=== PATIENT | male | born 1970 | race Caucasian/White ===

== ENCOUNTER 2017-07-20 06:04 | Observation (INO) ==
[2017-07-20] MEDS ORDERED: Aspirin 81 MG TAB.CHEW PO ONE (06:12)
[2017-07-20] MEDS ORDERED: Nitroglycerin 1 INCH/GM PACKET TP ONE (06:12)
--- NOTE | 2017-07-20 06:15 | Emergency Department Note ---
START Narrative - START START: I examined this patient and my medical decision-making was reviewed with the Resident Physician. I agree with the documented findings, disposition and treatment plan as described except to the extent set forth below. Nonspecific chest pain. Plan to obtain cardiac biomarkers, chest x-ray, EKG is nonspecific at this time. We will sign this patient out to Dr. Fermin and his resident at 7 AM for disposition after results of laboratory analyses and imaging are available and after risk stratification.
[2017-07-20 06:24] LABS: Basophils # 0.1 K/mcL (0.0-0.2); Basophils % 0.7 %; Eosinophils # 0.3 K/mcL (0.0-0.6); Eosinophils % 3.7 %; Hematocrit 48.7 % (37.5-50.1); Hemoglobin 16.2 g/dL (12.9-16.9); Immature Granulocytes % 0.9 % (0-4); Lymphocytes # 2.6 K/mcL (0.6-4.6); Lymphocytes % 38.2 %; Mean Corpuscular HGB Conc 33.3 g/dL (31.6-35.5); Mean Corpuscular Hemoglobin 28.2 pg (28.0-33.3); Mean Corpuscular Volume 84.8 fL (83.0-100.0); Mean Platelet Volume 9.6 fL (9.4-12.4); Monocytes # 0.7 K/mcL (0.0-1.3); Monocytes % 9.9 %; Neutrophils # 3.2 K/mcL (1.6-8.9); Platelet Count 243 K/mcL (140-400); Red Blood Count 5.74 M/mcL (4.19-5.50); Red Cell Distribution Width 13.1 % (11.5-14.5); Segmented Neutrophils % 46.6 %
--- NOTE | 2017-07-20 06:41 | Emergency Department Note ---
Disposition Clinical Impression: Chest pain Qualifiers: Chest pain type: unspecified Qualified Code(s): R07.9 - Chest pain, unspecified Disposition: Still a Patient Condition: Good Referrals: Alison Galdamez CNP [Primary Care Provider] - Forms: ED Satisfaction Letter Chest Pain HPI - General Chief Complaint: ED Chest Pain Stated Complaint: cp Time Seen by Provider: 07/20/17 06:12 Source: patient Limitations: no limitations Vital Signs Reviewed: Yes Nursing Notes Reviewed: Yes - History of Present Illness HPI Narrative: Patient presents today for evaluation of chest pain. Chest pain started last night. Intermittent in nature. Describes chest pain in the left chest that goes to the right as well as radiation to shoulders and neck. Patient states that he has had a fluttering feeling. The symptoms been intermittent in nature for the last several months. Patient has not had any nausea or associated diaphoresis. He states that he has had some shortness of breath with some walks that he is taking recently but these had not been associated with chest pain. Patient has strong family history of chest pain including father and mother both had heart disease in their early 40s. The patient also has hypertension, hypercholesterolemia, obesity, diabetes. Patient has had cardiac workup in the past with a cardiac catheter that has been reported 7-10 years ago. Patient states that there was some disease but no lesion that needed to be stented. Patient will undergo further cardiac evaluation. Severity scale (1-10): 2 - Related Data Allergies Allergy/AdvReac Type Severity Reaction Status Date / Time No Known Allergies Allergy Verified 07/20/17 06:10 Review of Systems: CONSTITUTIONAL: No weight loss, fever, chills, weakness or fatigue. HEENT: Eyes: No visual changes. Ears, Nose, Throat: No hearing loss, difficulty talking or unable to swallow. SKIN: No rash or itching. CARDIOVASCULAR: Chest pain. RESPIRATORY: Shortness of breath GASTROINTESTINAL: No anorexia, nausea, vomiting or diarrhea. No abdominal pain or blood. GENITOURINARY: No burning on urination or hematuria. NEUROLOGICAL: No headache, dizziness, syncope, paralysis, ataxia, numbness or tingling in the extremities. No change in bowel or bladder control. MUSCULOSKELETAL: No muscle pain, back pain, joint pain or stiffness. Chest Pain PMH - Past Medical History Medical history: Reports: diabetes, hyperlipidemia, hypertension, migraine Psychiatric history: Reports: no psych history - Social History Smoking Status: Never smoker Alcohol use: Reports: occasionally Drug use: Reports: none Physical Exam General: Well appearing, nontoxic, no acute distress Head: Normocephalic Atraumatic Eyes: PERRL, EOMI ENT: Airway patent, no stridor Neck: supple, no meningismus Chest: Lungs clear to auscultation bilateral Cardiac: Regular rate and rhythm, no murmurs, rubs or gallops Abdomen: soft, nontender, nondistended; no guarding, rebound, or tenderness to percussion Musculoskeletal: Calves symmetric, nontender, no palpable cord Skin: No rash, normal skin tone Neuro: Alert and Oriented to person, place, and time; No focal deficit, CN 2-12 symmetric and intact - General Limitations: no limitations General appearance: alert, in no apparent distress Course - Reevaluation(s) Reevaluation #1: Patient signed out to Dr. Sahni Vital Signs Temperature 97.9 F 07/20/17 06:10 Pulse Rate 86 07/20/17 06:10 Respiratory Rate 20 07/20/17 06:10 Blood Pressure 181/106 07/20/17 06:10 O2 Sat by Pulse Oximetry 99 07/20/17 06:10 Temperature 97.9 F 07/20/17 06:10 Pulse Rate 79 07/20/17 07:01 Respiratory Rate 20 07/20/17 07:01 Blood Pressure 151/98 07/20/17 07:01 O2 Sat by Pulse Oximetry 95 07/20/17 07:01 Oxygen Delivery Oxygen Delivery Room Air Chest Pain - Medical Records Medical records reviewed: Yes I reviewed the patient's medical records. - Lab Data Lab results reviewed: Yes I reviewed the patient's lab results. Result diagrams: 07/20/17 06:16 07/20/17 06:16 Lab Results 07/20/17 07/20/17 Range/Units 06:16 06:16 WBC 6.8 (4.3-11.1) K/mcL RBC 5.74 H (4.19-5.50) M/mcL Hgb 16.2 (12.9-16.9) g/dL Hct 48.7 (37.5-50.1) % MCV 84.8 (83.0-100.0) fL MCH 28.2 (28.0-33.3) pg MCHC 33.3 (31.6-35.5) g/dL RDW 13.1 (11.5-14.5) % Plt Count 243 (140-400) K/mcL MPV 9.6 (9.4-12.4) fL Immature Gran % 0.9 (0-4) % Seg Neutrophils % 46.6 % Lymphocytes % 38.2 % Monocytes % 9.9 % Eosinophils % 3.7 % Basophils % 0.7 % Neutrophils # 3.2 (1.6-8.9) K/mcL Lymphocytes # 2.6 (0.6-4.6) K/mcL Monocytes # 0.7 (0.0-1.3) K/mcL Eosinophils # 0.3 (0.0-0.6) K/mcL Basophils # 0.1 (0.0-0.2) K/mcL Sodium 138 (136-145) mEq/L Potassium 3.2 L (3.5-5.1) mEq/L Chloride 99 (98-107) mEq/L Carbon Dioxide 31 H (23-29) mEq/L BUN 16 (6-20) mg/dL Creatinine 1.10 (0.70-1.30) mg/dL Est GFR ( Amer) > 60 (> 60) Est GFR (Non-Af Amer) > 60 (> 60) BUN/Creatinine Ratio 15 (6-26) Glucose 187 H (70-105) mg/dL Calculated Osmolality 292 (280-300) Calcium 9.7 (8.6-10.3) mg/dL Troponin I < 0.03 (< 0.04) ng/mL - Radiology Data Radiology results reviewed: Yes I reviewed the patient's radiology results. - EKG Data EKG attestation: Yes I reviewed and interpreted this EKG. EKG results narrative: EKG shows sinus rhythm with ventricular rate of 80. [place] interval 201. QRS 90. QTC 417. The significant ST elevations or depressions.no significant T-wave changes. No skin changes from previous EKG of 07/28/2014. Heart Score - Score History: Moderately Suspicious EKG: Normal Age: 45-65 Risk Factors: Equal/Greater than 3 risk factor or history of atherosclerotic disease Troponin: Less than normal limit HEART Score Total: 4
[2017-07-20 06:45] LABS: BUN/Creatinine Ratio 15 (6-26); Blood Urea Nitrogen 16 mg/dL (6-20); Calcium 9.7 mg/dL (8.6-10.3); Carbon Dioxide 31 mEq/L (23-29); Chloride 99 mEq/L (98-107); Glucose 187 mg/dL (70-105); Osmolality,Calculated 292 (280-300); Potassium 3.2 mEq/L (3.5-5.1); Sodium 138 mEq/L (136-145); eGFR For African Americans > 60 (> 60); eGFR For Non-African Americans > 60 (> 60)
[2017-07-20 06:46] LABS: Troponin I < 0.03 ng/mL (< 0.04)
--- NOTE | 2017-07-20 07:09 | Emergency Department Note ---
Disposition Clinical Impression: Chest pain Qualifiers: Chest pain type: unspecified Qualified Code(s): R07.9 - Chest pain, unspecified Disposition: Admitted As Inpatient Condition: Good Referrals: Alison Galdamez CNP [Primary Care Provider] - Forms: ED Satisfaction Letter Time of Disposition: 07:19 Chest Pain HPI - General Chief Complaint: ED Chest Pain Stated Complaint: cp Time Seen by Provider: 07/20/17 06:12 Source: patient Limitations: no limitations - History of Present Illness Severity scale (1-10): 2 - Related Data Allergies Allergy/AdvReac Type Severity Reaction Status Date / Time No Known Allergies Allergy Verified 07/20/17 06:10 All systems ED: reviewed and negative except as stated. Constitutional: Denies: fever Cardiovascular: Reports: chest pain. Denies: palpitations Respiratory: Reports: dyspnea. Denies: cough, wheezes Gastrointestinal: Denies: abdominal pain, nausea, vomiting, diarrhea Genitourinary: Denies: urgency, dysuria, frequency, hematuria, discharge Integumentary: Denies: rash Neurological: Denies: headache, weakness, numbness, paresthesias Chest Pain PMH - Past Medical History Medical history: Reports: diabetes, hyperlipidemia, hypertension, migraine Psychiatric history: Reports: no psych history - Social History Smoking Status: Never smoker Alcohol use: Reports: occasionally Drug use: Reports: none Physical Exam - General Limitations: no limitations General appearance: alert, in no apparent distress - Head Head exam: atraumatic, normocephalic, normal inspection - Eye Eye exam: Present: normal appearance, PERRL, EOMI - ENT ENT exam: normal exam, normal oropharynx, mucous membranes moist - Neck Neck exam: Present: normal inspection, full ROM, trachea midline - Chest Chest inspection: Present: normal inspection, symmetric chest wall rise, tenderness (mild somewhat reproducible renderness on left chest). Absent: rash - Respiratory Respiratory exam: Present: normal lung sounds bilaterally - Cardiovascular Cardiovascular exam: Present: regular rate, normal rhythm, normal heart sounds - Abdominal Exam Abdominal exam: Present: soft, Non-Tender. Absent: tenderness, distention, guarding, rebound, rigidity - Neurological Exam Neurological exam: Present: alert, oriented X3 - Psychiatric Psychiatric exam: Present: normal affect, normal mood - Skin Skin exam: Present: warm, dry, intact, normal color Course Course Narrative: Patient is a signout from Dr. Wagner and Dr. Snyder, please see their notes for any additional details. In summary, patient is a 46-year-old male with past medical history of hypertension, diabetes, high cholesterol. He also has a history of early PA in age 40s and his mother, father, grandfather. He presents today with chest pain that has been intermittent for the past 6 months. He describes the pain as a dull ache/pressure that starts in his left chest. It radiates to his left arm and is associated with some mild left upper extremity tingling. He states that yesterday, pain started around 5 PM while at rest, gradual in onset, described as a dull ache/pressure with radiation to his left upper extremity. He also had associated sweating. Denies any nausea, vomiting, fevers, diarrhea, abdominal pain, any current numbness continuing, weakness. No pleuritic component of the pain. No other leg swelling, calf pain , recent surgeries, long car rides, history of DVT or PE. He states that it started as a 5 out of 10 and continued until this morning. He was given aspirin and nitroglycerin by previous team. He states that his pain is now 2 out of 10. Chest pain is somewhat reproducible on exam but patient states it is deeper than what I'm able to palpate. Hx of reportedly negative stress test and heart cath in the past that were performed here several years ago, upon search I'm not able to find these records on our computer system. He does report that he has poor follow-up, we will likely not follow-up with cardiology for stress testing if he is discharged today. His heart score is 4 due to risk factors. EKG shows normal sinus rhythm with no acute ST changes. No new negative. Chest x-ray negative for any acute cardiopulmonary process. Due to risk factors, continued chest discomfort, for follow-up, will admit the patient for further ACS workup including trending troponins and recommended stress test. Vital Signs Temperature 97.9 F 07/20/17 06:10 Pulse Rate 86 07/20/17 06:10 Respiratory Rate 20 07/20/17 06:10 Blood Pressure 181/106 07/20/17 06:10 O2 Sat by Pulse Oximetry 99 07/20/17 06:10 Temperature 97.9 F 07/20/17 06:10 Pulse Rate 79 07/20/17 07:01 Respiratory Rate 20 07/20/17 07:01 Blood Pressure 151/98 07/20/17 07:01 O2 Sat by Pulse Oximetry 95 07/20/17 07:01 Oxygen Delivery Oxygen Delivery Room Air Chest Pain - MDM Narrative Medical decision making narrative: Patient is a signout from Dr. Wagner and Dr. Snyder, please see their notes for any additional details. In summary, patient is a 46-year-old male with past medical history of hypertension, diabetes, high cholesterol. He also has a history of early PA in age 40s and his mother, father, grandfather. He presents today with chest pain that has been intermittent for the past 6 months. He describes the pain as a dull ache/pressure that starts in his left chest. It radiates to his left arm and is associated with some mild left upper extremity tingling. He states that yesterday, pain started around 5 PM while at rest, gradual in onset, described as a dull ache/pressure with radiation to his left upper extremity. He also had associated sweating. Denies any nausea, vomiting, fevers, diarrhea, abdominal pain, any current numbness continuing, weakness. No pleuritic component of the pain. No other leg swelling, calf pain , recent surgeries, long car rides, history of DVT or PE. He states that it started as a 5 out of 10 and continued until this morning. He was given aspirin and nitroglycerin by previous team. He states that his pain is now 2 out of 10. Chest pain is somewhat reproducible on exam but patient states it is deeper than what I'm able to palpate. Hx of reportedly negative stress test and heart cath in the past that were performed here several years ago, upon search I'm not able to find these records on our computer system. He does report that he has poor follow-up, we will likely not follow-up with cardiology for stress testing if he is discharged today. His heart score is 4 due to risk factors. EKG shows normal sinus rhythm with no acute ST changes. No new negative. Chest x-ray negative for any acute cardiopulmonary process. Due to risk factors, continued chest discomfort, for follow-up, will admit the patient for further ACS workup including trending troponins and recommended stress test. - Medical Records Medical records reviewed: Yes I reviewed the patient's medical records. - Lab Data Lab results reviewed: Yes I reviewed the patient's lab results. Result diagrams: 07/20/17 06:16 07/20/17 06:16 Lab Results 07/20/17 07/20/17 Range/Units 06:16 06:16 WBC 6.8 (4.3-11.1) K/mcL RBC 5.74 H (4.19-5.50) M/mcL Hgb 16.2 (12.9-16.9) g/dL Hct 48.7 (37.5-50.1) % MCV 84.8 (83.0-100.0) fL MCH 28.2 (28.0-33.3) pg MCHC 33.3 (31.6-35.5) g/dL RDW 13.1 (11.5-14.5) % Plt Count 243 (140-400) K/mcL MPV 9.6 (9.4-12.4) fL Immature Gran % 0.9 (0-4) % Seg Neutrophils % 46.6 % Lymphocytes % 38.2 % Monocytes % 9.9 % Eosinophils % 3.7 % Basophils % 0.7 % Neutrophils # 3.2 (1.6-8.9) K/mcL Lymphocytes # 2.6 (0.6-4.6) K/mcL Monocytes # 0.7 (0.0-1.3) K/mcL Eosinophils # 0.3 (0.0-0.6) K/mcL Basophils # 0.1 (0.0-0.2) K/mcL Sodium 138 (136-145) mEq/L Potassium 3.2 L (3.5-5.1) mEq/L Chloride 99 (98-107) mEq/L Carbon Dioxide 31 H (23-29) mEq/L BUN 16 (6-20) mg/dL Creatinine 1.10 (0.70-1.30) mg/dL Est GFR ( Amer) > 60 (> 60) Est GFR (Non-Af Amer) > 60 (> 60) BUN/Creatinine Ratio 15 (6-26) Glucose 187 H (70-105) mg/dL Calculated Osmolality 292 (280-300) Calcium 9.7 (8.6-10.3) mg/dL Troponin I < 0.03 (< 0.04) ng/mL - Radiology Data Radiology results reviewed: Yes I reviewed the patient's radiology results. Chest X-Ray 07/20/17 06:12 IMPRESSION: No acute cardiopulmonary abnormality. D/ / Ravi Mathis MD / Ravi Mathis MD Interpreting Provider: Ravi Mathis MD - EKG Data EKG attestation: Yes I reviewed and interpreted this EKG. EKG results narrative: 07/20/17 at 06:08. NSR. Rate 80. [place] 201, QRS 98, QTC 417. Normal axis. No acute ST evelation or depression. Heart Score - Score History: Moderately Suspicious EKG: Normal Age: 45-65 Risk Factors: Equal/Greater than 3 risk factor or history of atherosclerotic disease Troponin: Less than normal limit HEART Score Total: 4 S.B.A.R. - S.Deiudonne.A.Guy Situation: Demographics, MOA Background: Presenting Complaint, Relevant PMH, Meds, & Allergies Assessment: Vital Signs, Course and respsone to treatment, Exam Concerns, Patient/Family Expectation, Pertinant Lab Results Recommendation: Barrier(s) to disposition, Recommendation based on pending studies, treatments, or consults S.B.A.RRose Report Given to: Dr. Sanaz Frazier Repor Time: 07:20
--- NOTE | 2017-07-20 08:58 | Internal Med History&Physical ---
Date of Encounter: 07/20/17 Time of Encounter: 08:00 Internal Medicine - H&P: HPI Chief complaint: chest pain Admitted From: Home History of present illness: Patient is 46-year-old male with past medical history significant for hypertension, diabetes and TOMMY who presents to the ER on 07/20/17 due to chest pain. Patient reports of 6 months of intermittent left-sided chest pain which he describes as dull to sharp lasting for hours with no provoking or relieving factors. Patient denies any radiation of this pain and denies any associated symptoms of shortness of breath, diaphoresis or nausea/vomiting. Patient was concerned due to strong family history of LA and decided to come to the ER for evaluation. In the ER, EKG showed no ST or T-wave changes and first set of cardiac biomarkers are negative. Patient will be admitted to medical surgical floor for ACS rule out. Past Med Surg Social Fam HX - Past Medical History Medical history: diabetes, hyperlipidemia, hypertension, migraine, other Psychiatric history: no psych history - Social History Smoking Status: Never smoker Alcohol use: occasionally Drug use: none - Family History Mother Living Status: Still Living Hx Family Cardiac Disorders: Yes (open heart when in her 40's) Internal Medicine - H&P: Meds Aspirin [Lo-Dose Aspirin EC] 81 mg PO DAILY 07/20/17 [History] Atenolol/Chlorthalidone [Tenoretic 50 Tablet] 1 tab PO DAILY 07/20/17 [History] Ezetimibe/Simvastatin [Vytorin 10-40 mg Tablet] 1 tab PO DAILY 07/20/17 [History ] Fenofibrate Nanocrystallized [Tricor] 145 mg PO DAILY 07/20/17 [History] Metformin HCl [Glucophage] 1,000 mg PO BID 07/20/17 [History] [place]-3/Dha/Epa/Fish Oil [Fish Oil 1,000 mg Softgel] 1 cap PO DAILY 07/20/17 [ History] 3 Allergy/AdvReac Type Severity Reaction Status Date / Time No Known Allergies Allergy Verified 07/20/17 06:10 All Systems PM: A 10-system review of systems was performed and is negative for pertinent findings except as documented above in the HPI. - Constitutional Vitals: Temp Pulse Resp BP Pulse Ox 98.2 F 63 16 134/80 95 07/20/17 08:44 07/20/17 08:44 07/20/17 08:44 07/20/17 08:44 07/20/17 08:44 General appearance: Present: A&O X 3, no acute distress - Eye Eye exam: Present: normal appearance - ENT ENT exam: Present: mucous membranes moist - Respiratory Respiratory exam: Present: CTAB. Absent: respiratory distress, rhonchi, wheezes , tachypnea - Cardiovascular Cardiovascular exam: Present: RRR, +S1, +S2. Absent: diastolic murmur, gallop, rubs, systolic murmur - GI/Abdominal GI/Abdominal exam: Present: normal bowel sounds, soft, no peritoneal signs. Absent: distended, tenderness - Extremities Exam Extremities exam: Absent: pedal edema - Neurological Exam Neurological exam: Present: oriented X3 - Psychiatric Psychiatric exam: Present: normal mood - Skin Skin exam: Present: normal color Internal Med - H&P Results - Labs CBC & Chem 7: 07/20/17 06:16 07/20/17 06:16 - Assessment and plan (1) Chest pain Current Visit: Yes Status: Acute Assessment and plan: In the ER, EKG showed no ST or T-wave changes and first set of cardiac biomarkers are negative. Will continue to trend serial cardiac biomarkers and monitor on telemetry. Will order nuclear medicine stress tests and await results before considering cardiology consult. Qualifiers: Chest pain type: unspecified Qualified Code(s): R07.9 - Chest pain, unspecified (2) HTN (hypertension), benign Current Visit: Yes Status: Acute Assessment and plan: Blood pressure controlled; will hold beta ramiro due to pending nuclear medicine stress test (3) Diabetes Current Visit: Yes Status: Acute Assessment and plan: Blood glucose controlled; will hold metformin and cover with sliding scale insulin Qualifiers: Qualified Code(s): E11.9 - Type 2 diabetes mellitus without complications (4) HLD (hyperlipidemia) Current Visit: Yes Status: Acute Assessment and plan: Will continue home cholesterol medications Qualifiers: Hyperlipidemia type: unspecified Qualified Code(s): E78.5 - Hyperlipidemia , unspecified (5) TOMMY (obstructive sleep apnea) Current Visit: Yes Status: Acute Assessment and plan: CPAP daily at bedtime (6) DVT prophylaxis Current Visit: Yes Status: Acute Assessment and plan: Heparin subcutaneous - Time Spent With Patient Total time spent is greater than 50% in coordination of care (as documented) at patient's floor/unit and/or counseling patient:
[2017-07-20] MEDS ORDERED: Naloxone 0.4 MG/ML INJ IVP PRN (09:19)
[2017-07-20] MEDS ORDERED: Ketorolac 30 MG/ML VIAL IVP PRN (09:19)
[2017-07-20] MEDS ORDERED: Dextrose Gel 15 GM/37.5 ML TUBE PO PRN ×2 (09:24)
[2017-07-20] MEDS ORDERED: D5% in Water 1,000 ML IVC PRN (09:24)
[2017-07-20] MEDS ORDERED: *HR* Dextrose 50 % in Water (Syg) 50 ML SYRINGE IVP PRN (09:24)
[2017-07-20] MEDS: Insulin LISPRO 300 UNITS/3 ML VIAL SQ SCH ×2 (12:02→17:38)
[2017-07-20] MEDS ORDERED: Nitroglycerin 0.4 MG TAB.SUBL SL PRN (20:10)
[2017-07-21 01:16] LABS: Basophils % 0.5 %; Eosinophils # 0.2 K/mcL (0.0-0.6); Eosinophils % 3.7 %; Hematocrit 42.5 % (37.5-50.1); Hemoglobin 14.8 g/dL (12.9-16.9); Lymphocytes # 2.7 K/mcL (0.6-4.6); Lymphocytes % 43.8 %; Mean Corpuscular HGB Conc 34.8 g/dL (31.6-35.5); Mean Corpuscular Hemoglobin 29.4 pg (28.0-33.3); Mean Corpuscular Volume 84.5 fL (83.0-100.0); Mean Platelet Volume 9.8 fL (9.4-12.4); Monocytes # 0.6 K/mcL (0.0-1.3); Monocytes % 9.6 %; Neutrophils # 2.6 K/mcL (1.6-8.9); Platelet Count 209 K/mcL (140-400); Red Blood Count 5.03 M/mcL (4.19-5.50); Segmented Neutrophils % 41.4 %
[2017-07-21 01:37] LABS: BUN/Creatinine Ratio 16 (6-26); Blood Urea Nitrogen 18 mg/dL (6-20); Calcium 9.4 mg/dL (8.6-10.3); Carbon Dioxide 31 mEq/L (23-29); Chloride 101 mEq/L (98-107); Glucose 130 mg/dL (70-105); Osmolality,Calculated 292 (280-300); Potassium 3.3 mEq/L (3.5-5.1); Sodium 139 mEq/L (136-145); eGFR For African Americans > 60 (> 60); eGFR For Non-African Americans > 60 (> 60)
--- NOTE | 2017-07-21 05:32 | Electrocardiograph Report ---
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
[2017-07-21] MEDS ORDERED: Regadenoson 0.4 MG/5 ML SYRINGE IVP ONE (05:42)
[2017-07-21] MEDS: Insulin LISPRO 300 UNITS/3 ML VIAL SQ SCH ×3 (13:18→18:03)
[2017-07-21] MEDS: Aspirin Enteric Coated 81 MG Tablet PO SCH (13:18)
[2017-07-21] MEDS: Fenofibrate 54 MG TABLET PO SCH (13:18)
[2017-07-21] MEDS: (Omega-3/Dha/Epa/Fish Oil [Fish Oil 1,000 Mg Softgel] PO SCH (13:20)
[2017-07-21] MEDS: SIMVASTATIN PO SCH (13:21)
[2017-07-21] MEDS: EZETIMIBE PO SCH (13:21)
--- NOTE | 2017-07-21 15:09 | Electrocardiograph Report ---
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
--- NOTE | 2017-07-21 16:42 | Internal Med Progress Note ---
Date of Encounter: 07/21/17 Time of Encounter: 11:15 - Assessment and plan (1) Chest pain Current Visit: Yes Status: Acute Assessment and plan: Pt reports that he has had left chest pain for 6 months to a year. REcently pt had left arm pain and numbness associated with chest pain, prompting his admission. Pain is sharp or dull, intermittent, sometimes can last for hours, no alleviating or aggravating factors. Pt reports strong family history of CAD and ME. Pt has none himself. He reports that he did have an LHC here 6 years ago that was negative. He denies cardiology follow up and was told to "eat better." EKG negative for ST changes, NSR. Troponins negative x 3. Chest xray negative. A1c 7.0%, diabetes uncontrolled. Triglycerides elevated in June,, cholesterol WNL. Pt has completed day 1 of 2 day stress test. Echo ordered and pending. Cardiology consulted per pt request. Continue telemetry Continue aspirin, TriCor. Qualifiers: Chest pain type: unspecified Qualified Code(s): R07.9 - Chest pain, unspecified (2) Diabetes Current Visit: Yes Status: Chronic Assessment and plan: Uncontrolled diabetes with A1c of 7.0.% Continue sliding scale insulin, Accu-Chek before meals and at bedtime, diabetic diet. 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 CPAP daily at bedtime (4) DVT prophylaxis Current Visit: Yes Status: Acute Assessment and plan: Lovenox SQ. Encourage ambulation. (5) HLD (hyperlipidemia) Current Visit: Yes Status: Acute Assessment and plan: Cholesterol WNL, triglycerides elevated. Pt takes Tricor at home, continue here. Qualifiers: Hyperlipidemia type: unspecified Qualified Code(s): E78.5 - Hyperlipidemia , unspecified (6) HTN (hypertension), benign Current Visit: Yes Status: Chronic Assessment and plan: Blood pressure above goal for age and comorbidities this afternoon. Will continue to monitor and adjust medications as needed. Continue current medications Pt admits to being non-adherent with home medications. - Time Spent With Patient Total time spent is greater than 50% in coordination of care (as documented) at patient's floor/unit and/or counseling patient: less than 15 minutes - Subjective Interval history: Patient was seen and assessed the bedside at 11:15 AM. and son read bedside. He was alerted prior to entering the room that patient had multiple questions so patient was evaluated with primary nurse at bedside. Patient reports either one year or 6 month history of left chest pain. He reports one time that he has had it for over a year, another time states he has had it for 6 months and was seen for it at that time. He also reports having negative LHC 6 years ago. He reports that after his stress test he did not ever follow up with cardiology and that they told him to "eat better." Patient and both expressed frustration he was not able to get his stress test yesterday because he had a nitroglycerin patch on, although it appears that he was not even evaluated by admitting hospitalist until 0856. Patient and again verbalized frustration about not being able to get stress test results today despite having it explained to them that he is a 2 day stress test due to his BMI in both parts are required to complete the test. They also say that since he has been here so long, his stress test should be read first before everyone else's. Patient insists that we will be able to see blockages with his stress test, I explained to patient and that we will be able to see areas of damage, but no blockages, that would require an LHC. They stated multiple times that they want him to have an LHC to find out what is going on and that if we do not cath him here, they will go to [place]. Patient denies any change in duration, frequency, quality, or intensity of his chest pain to bring him in after having it for 6-12 months. He states that he is afraid that he will go to bed and not wake up again, he is tearful and cursing at me at this point. Patient and both verbalize that we are keeping him here to make money off him and his insurance company. Patient and both verbalize that they are upset that they have not seen a white sugar supervisor yet and that he is NPO for testing and has not been able to eat. I explained to them that we do not have anything to discuss with cardiology at this point since we have no test results, but would call them per his request. I did consult cardiology upon leaving the room and discussed case with nurse practitioner, she states they will see him tomorrow regardless of the outcome of his stress test. also wants to know if there is another test that can figure out what is wrong with him, echocardiogram is ordered and pending. Primary nurse, charge nurse, and I all explained to patient and that we were unsure of when echocardiogram would be completed, they have asked multiple times when it is going to be done. They also have asked multiple times when cardiology is coming , the 3 of us have explained that they will come tomorrow multiple times. Patient reports that he is not on adherent to his medication regimen and states that he would rather come in 1 time a month and have us give him a shot to control all of his diseases rather than take medication every day. He also states that he and his argue a lot about his sedentary lifestyle. He states that he does not shave, sometimes does not base, and sits on his couch most of every day. Patient was resistant to discussion of depression. We attempted to discuss his risk factors including strong family history, diabetes , hypertension, and obesity, as well as non-adherence to medication regimen. He states that it is too hard to eat well and exercise. - Constitutional Vitals: Temp Pulse Resp BP Pulse Ox 98.3 F 89 14 165/68 95 07/21/17 15:18 07/21/17 15:18 07/21/17 15:18 07/21/17 15:18 07/21/17 15:18 General appearance: Present: cooperative, A&O X 3, no acute distress, obese, answers questions appropriately - Head Head exam: Present: atraumatic, normal inspection, normocephalic - Eye Eye exam: Present: normal appearance, conjuntiva pink, sclera anicteric - Neck Neck exam general surgery: Present: normal inspection, supple, trachea midline. Absent: lymphadenopathy, tenderness - Respiratory Respiratory exam: Present: CTAB. Absent: accessory muscle use, chest wall tenderness, rales, respiratory distress, rhonchi, wheezes - Cardiovascular Cardiovascular exam: Present: RRR, +S1, +S2. Absent: diastolic murmur, gallop, rubs, systolic murmur - GI/Abdominal GI/Abdominal exam: Present: normal bowel sounds, soft. Absent: distended, hepatomegaly, tenderness - Extremities Exam Extremities exam: Present: normal capillary refill, normal inspection, warm, radial pulses palpable and symmetrical. Absent: calf tenderness, cyanotic, joint swelling, pedal edema, tenderness - Neurological Exam Neurological exam: Present: alert, oriented X3, no focal deficits. Absent: facial droop, speech deficit - Skin Skin exam: Present: dry, intact, normal color, warm. Absent: rash Internal Medicine: Result - Labs CBC & Chem 7: 07/21/17 00:44 07/21/17 00:44 Labs: Short CBC 07/21/17 Range/Units 00:44 WBC 6.2 (4.3-11.1) K/mcL Hgb 14.8 (12.9-16.9) g/dL Hct 42.5 (37.5-50.1) % Plt Count 209 (140-400) K/mcL Neutrophils # 2.6 (1.6-8.9) K/mcL BMP 07/21/17 00:44 Sodium 139 Potassium 3.3 L Chloride 101 Carbon Dioxide 31 H BUN 18 Creatinine 1.14 Glucose 130 H Calcium 9.4 Cardiac Enzymes 07/20/17 07/21/17 Range/Units 18:13 00:44 Troponin I < 0.03 < 0.03 (< 0.04) ng/mL - VTE Documentation of Mechanical Device: Graduated compression elastic hosiery Consult Discharge Plan - Plan Referrals: Alison Galdamez CNP [Primary Care Provider] - 07/29/17 9:00 am
[2017-07-22 04:40] LABS: Basophils % 0.7 %; Eosinophils # 0.2 K/mcL (0.0-0.6); Eosinophils % 3.7 %; Hematocrit 45.2 % (37.5-50.1); Hemoglobin 15.2 g/dL (12.9-16.9); Immature Granulocytes % 0.9 % (0-4); Lymphocytes % 36.7 %; Mean Corpuscular HGB Conc 33.6 g/dL (31.6-35.5); Mean Corpuscular Hemoglobin 28.3 pg (28.0-33.3); Mean Platelet Volume 9.6 fL (9.4-12.4); Monocytes # 0.5 K/mcL (0.0-1.3); Monocytes % 9.8 %; Neutrophils # 2.6 K/mcL (1.6-8.9); Platelet Count 211 K/mcL (140-400); Red Blood Count 5.38 M/mcL (4.19-5.50); Red Cell Distribution Width 13.2 % (11.5-14.5); Segmented Neutrophils % 48.2 %
[2017-07-22 04:56] LABS: BUN/Creatinine Ratio 16 (6-26); Blood Urea Nitrogen 17 mg/dL (6-20); Calcium 9.3 mg/dL (8.6-10.3); Carbon Dioxide 28 mEq/L (23-29); Chloride 104 mEq/L (98-107); Glucose 143 mg/dL (70-105); Osmolality,Calculated 292 (280-300); Potassium 3.6 mEq/L (3.5-5.1); Sodium 139 mEq/L (136-145); eGFR For African Americans > 60 (> 60); eGFR For Non-African Americans > 60 (> 60)
[2017-07-22] MEDS ORDERED: *HR* Enoxaparin 40 MG/0.4 ML SYRINGE SQ SCH (07:00)
[2017-07-22] MEDS: SIMVASTATIN PO SCH (07:22)
[2017-07-22] MEDS: Insulin LISPRO 300 UNITS/3 ML VIAL SQ SCH ×2 (07:22→11:34)
[2017-07-22] MEDS: (Omega-3/Dha/Epa/Fish Oil [Fish Oil 1,000 Mg Softgel] PO SCH (07:22)
[2017-07-22] MEDS: EZETIMIBE PO SCH (07:22)
[2017-07-22] MEDS: Fenofibrate 54 MG TABLET PO SCH (08:21)
[2017-07-22] MEDS: Aspirin Enteric Coated 81 MG Tablet PO SCH (08:21)
[2017-07-22 11:25] VITALS: BP 153/94
--- NOTE | 2017-07-22 11:26 | Cardiology Consult Note ---
Addendum entered and electronically signed by Karlos Young CNP 07/22/17 11:42 : Noted atenolol held last two days for stress test. WIll restart atenolol and start norvasc if needed. Addendum entered and electronically signed by Karlos Young CNP 07/22/17 11:39 : B/p noted to be elevated throughout stay up to 180/100's, recommend better blood pressure control. Add norvasc. Original Note: Date of Encounter: 07/22/17 Time of Encounter: 11:21 Assessment and Plan (1) Chest pain Current Visit: Yes Status: Acute C/o atypical chest pain and increasing dyspnea on exertion. Known mild CAD on [facility] in 2013. TTE completed and shows preserved EF. No significant valvular disease. Telemetry review shows SR-ST, Avg hr 72 bpm. 2-day stress test pending. Continue aggressive risk factor modification. Continue asa, statin, and bb. Further recommendation following stress test. Qualifiers: Chest pain type: unspecified Qualified Code(s): R07.9 - Chest pain, unspecified (2) CAD (coronary artery disease) Current Visit: Yes Status: Acute LHC in 2013 showed mild CAD. There was a 30-40% stenosis in the pLAD, 30% stenosis 1st Dx artery, 20% stenosis pRCA, 40% stenosis RPDA. Continue asa, statin, bb. Stress test pending. Qualifiers: Coronary Disease-Associated Artery/Lesion type: [place] artery [place] vs. transplanted heart: [place] heart Associated angina: with unstable angina Qualified Code(s): I25.110 - Atherosclerotic heart disease of [place] coronary artery with unstable angina pectoris Discussion w patient/family: The assessment and plan as outlined above was discussed with the patient and/or family members who expressed understanding and agreement. All questions were answered. Thank you for involving us in the care of your patient. Please call with any questions. History of Present Illness Consult date: 07/22/17 Requesting physician: Cecily Crews Consult reason: Chest pain Chief complaint: Intermittent chest pain and left arm tingling History of present illness: Mr. Calle is a 46 year old male with past medical history of mild CAD on [facility] , TOMMY on c-pap, HTN, HLD, and DM type II. He presented with the c/o dyspnea on exertion after walking across a parking lot to vote. Later that night he developed left arm tingling and left sided chest discomfort described as a sharp stabbing pain. C/o occasional palpitations. C/o intermittent chest pain for the past six months with increasing dyspnea on exertion. 2-day stress was was completed and currently pending. Past Med Surg Social Fam HX - Past Medical History Attestation: Yes The following information was validated with the patient. Medical history: coronary artery disease, diabetes, hyperlipidemia, hypertension , migraine Psychiatric history: no psych history - Social History Smoking Status: Never smoker Alcohol use: occasionally Drug use: none - Family History Mother Living Status: Still Living Hx Family Cardiac Disorders: Yes (open heart when in her 40's) Medications and Allergies Aspirin [Lo-Dose Aspirin EC] 81 mg PO DAILY 07/20/17 [History] Atenolol/Chlorthalidone [Tenoretic 50 Tablet] 1 tab PO DAILY 07/20/17 [History] Ezetimibe/Simvastatin [Vytorin 10-40 mg Tablet] 1 tab PO DAILY 07/20/17 [History ] Fenofibrate Nanocrystallized [Tricor] 145 mg PO DAILY 07/20/17 [History] Metformin HCl [Glucophage] 1,000 mg PO BID 07/20/17 [History] [place]-3/Dha/Epa/Fish Oil [Fish Oil 1,000 mg Softgel] 1 cap PO DAILY 07/20/17 [ History] 3 Allergy/AdvReac Type Severity Reaction Status Date / Time No Known Allergies Allergy Verified 07/20/17 06:10 All Systems Review: The remainder of the systems were reviewed and are negative Physical Examination Vital Signs, Last 4 Hours Temp Pulse Resp BP Pulse Ox 07/22/17 08:04 98.6 F 115 14 195/94 98 General: Conversant, No Apparent Distress HEENT: Atraumatic, Normocephaly, Mucus Membranes Moist Neck: No JVD, Normal carotid pulses Cardiac: Reg Rate and Rhythm, Normal S1 and S2, No Murmur Lungs: Normal Breath Sounds, No Wheeze, Rales, Rhonchi Neuro: Alert and responsive, No focal deficits noted Abdomen: Soft, Non-Tender Skin: No rashes noted on visualized skin Musculoskeletal: Other (reproducible chest wall pain) Extremities: No Clubbing, No Cyanosis, No Edema, Normal Pulses Results 07/22/17 04:23 05/11/18 04:23 Lab Results 07/22/17 07/22/17 04:23 04:23 WBC 5.4 Hgb 15.2 Hct 45.2 Plt Count 211 Sodium 139 Potassium 3.6 Chloride 104 Carbon Dioxide 28 BUN 17 Creatinine 1.07 Glucose 143 H Calcium 9.3 - Imaging and Cardiology Stress Test: report reviewed Echo: report reviewed - EKG Interpretation EKG results cardiology: personally reviewed Consult Discharge Plan - Plan Referrals: Alison Galdamez CNP [Primary Care Provider] - 07/29/17 9:00 am
[2017-07-22] MEDS ORDERED: (Atenolol/Chlorthalidone [Tenoretic 50 Tablet] 1 TAB) PO SCH (11:45)
[2017-07-22] MEDS ORDERED: amLODIPine 5 MG TABLET PO SCH (11:45)
--- NOTE | 2017-07-22 14:16 | Discharge Summary ---
- NOTES TO OUTPATIENT PROVIDER Notes to Outpatient Provider: Pt admitted for 6 month history of left chest pain. Echo 60-65% LVEF indeterminant diastolic function, no significant valvular dysfunction. Stress test is negative for ischemia or infarct with gated EF of 72%. Patient with hypertension, obesity, diabetes, TOMMY. We discussed risk factor modification at length. Patient reports he is not always compliant with his medication regimen, patient will need significant eduacation to have the motivation to implement lifestyle modifications. Recommend patient be referred to lead software developer. Orders not resulted at time of discharge: Pending orders 07/21/17 09:11 NM paul perf SPECT multi [NM] Routine Date of Encounter: 07/22/17 Time of Encounter: 12:50 - Discharge Diagnosis (1) Chest pain Priority: Primary Status: Acute Assessment and Plan: EKG negative for ST changes, NSR. Troponins negative x 3. Chest xray negative. A1c 7.0%, diabetes uncontrolled. Triglycerides elevated in June,, cholesterol WNL. Echo with LVEF of 60-65%, indeterminant diastolic function, no significant valvular dysfunction. Stress test negative for ischemia or infarct. Suspect that chest pain is secondary to hypertension. He admits he is not compliant with medications for several days at a time. Patient I discussed at length lifestyle modifications to decrease risk factors which include diabetes, hypertension, hyperlipidemia, obesity, TOMMY. Pt has been evaluated by cardiology at pt's request. Cardiology recommends aggressive risk factor modification. Continue aspirin, TriCor, fish oil, Vytorin, Tenoretic. Monitor vital signs at home and share with PCP. Follow up with cardiology, PCP, lead software developer, and nursing educator. Qualifiers: Chest pain type: unspecified Qualified Code(s): R07.9 - Chest pain, unspecified (2) Diabetes Priority: Secondary Status: Chronic Assessment and Plan: Uncontrolled diabetes with A1c of 7.0.% Continue metformin. Continue Accu-Chek regimen per home schedule. Recommend diabetes education and lifestyle modifications. Qualifiers: Diabetes mellitus type: type 2 Diabetes mellitus mcc insulin use: without intermediate card tender use Diabetes mellitus complication status: without complication Qualified Code(s): E11.9 - Type 2 diabetes mellitus without complications (3) TOMMY (obstructive sleep apnea) Priority: Secondary Status: Acute Assessment and Plan: Chronic. CPAP daily at bedtime (4) DVT prophylaxis Priority: Secondary Status: Acute Assessment and Plan: Lovenox SQ. patient was ambulatory. (5) HLD (hyperlipidemia) Priority: Secondary Status: Acute Assessment and Plan: Pt takes Tricor and Vytorin at home, continue here. Qualifiers: Hyperlipidemia type: unspecified Qualified Code(s): E78.5 - Hyperlipidemia , unspecified (6) HTN (hypertension), benign Priority: Secondary Status: Chronic Assessment and Plan: Blood pressure above goal for age and comorbiditiies, uncontrolled hypertension. Continue current medications, add Norvasc. Pt admits to being non-adherent with home medications. Hospital course: Mr. Calle is a 46 year old male with HTN, uncontrolled diabetes, HLD, TOMMY, obesity, and history of noncompliance who presented to the ED with c/o 6 month history of left chest pain. Patient reports episode prior to admission patient became short of breath and had pain in his left arm. He denies any change in the quality, duration, intensity of the pain, reports that he was scared wanted to be seen. Patient has strong family history of heart disease and early [place]. Troponins were negative, chest x-ray is negative echocardiogram with preserved ejection fraction and no significant valvular dysfunction. Stress test negative for ischemia or infarct with gated EF of 72%. Patient has been pain- free since admission. Strongly suspect the chest pain is related to uncontrolled hypertension. He reports a long history of noncompliance with medications and states that he would rather come in once a month to get a shot than take his medications every day. Patient had hypertension during visit, new antihypertensive medication was added to regimen. All test results and medication changes were discussed with patient and he verbalized understanding. He was evaluated by cardiology at his request. He is to follow-up with cardiology in the office. She had an and I discussed at length his need for lifestyle modifications. Patient seemed resistant states that it is too hard to diet and exercise and take his medications as directed. Recommend he follow with primary care cardiology, possibly lead software developer and diabetes education. Labs are stable and within normal limits, vital signs are within normal limits, blood pressure is improved since the addition of numerous antihypertensive. Patient states that he is going to get his medical records and see another dry man at another facility. He is stable and appropriate for discharge. Discharge discussed with: patient, nurse - Time Spent with Patient Total time spent providing and/or coordinating discharge services: Less than 30 minutes - Discharge Medications Prescriptions: amLODIPine [Norvasc] 2.5 mg PO DAILY #14 tablet Home Medications: Aspirin [Lo-Dose Aspirin EC] 81 mg PO DAILY 07/20/17 [History] Atenolol/Chlorthalidone [Tenoretic 50 Tablet] 1 tab PO DAILY 07/20/17 [History] Ezetimibe/Simvastatin [Vytorin 10-40 mg Tablet] 1 tab PO DAILY 07/20/17 [History ] Fenofibrate Nanocrystallized [Tricor] 145 mg PO DAILY 07/20/17 [History] Metformin HCl [Glucophage] 1,000 mg PO BID 07/20/17 [History] [place]-3/Dha/Epa/Fish Oil [Fish Oil 1,000 mg Softgel] 1 cap PO DAILY 07/20/17 [ History] amLODIPine [Norvasc] 2.5 mg PO DAILY #14 tablet 07/22/17 [Rx] Allergies/Adverse Reactions: 3 Allergy/AdvReac Type Severity Reaction Status Date / Time No Known Allergies Allergy Verified 07/20/17 06:10 Date of admission: 07/20/17 07:35 Primary care physician: Alison Galdamez CNP Consults: 07/21/17 13:20 Consult to Cardiology [CONS] Routine Comment: Consulting Provider: Cardiology Yi Reason for Consult: Patient request Time Notified: 12:30 Call Completed: Yes Discharging clinician: Cecily Crews Anticipated date of discharge: 07/22/17 - Constitutional Vitals: Temp Pulse Resp BP Pulse Ox 97.8 F 79 16 153/94 95 07/22/17 11:24 07/22/17 11:24 07/22/17 11:24 07/22/17 11:24 07/22/17 11:24 General appearance: Present: cooperative, A&O X 3, no acute distress, obese, answers questions appropriately - Head Head exam: Present: atraumatic, normal inspection, normocephalic - Eye Eye exam: Present: normal appearance, conjuntiva pink, sclera anicteric - Neck Neck exam general surgery: Present: supple, trachea midline. Absent: lymphadenopathy, tenderness - Respiratory Respiratory exam: Present: CTAB. Absent: accessory muscle use, rales, rhonchi, wheezes - Cardiovascular Cardiovascular exam: Present: RRR, +S1, +S2. Absent: diastolic murmur, gallop, rubs, systolic murmur - GI/Abdominal GI/Abdominal exam: Present: distended, soft. Absent: hepatomegaly, tenderness - Extremities Exam Extremities exam: Present: normal capillary refill, normal inspection, warm, radial pulses palpable and symmetrical. Absent: calf tenderness, cyanotic, pedal edema, tenderness - Neurological Exam Neurological exam: Present: alert, oriented X3, no focal deficits. Absent: facial droop, speech deficit - Skin Skin exam: Present: dry, intact, normal color, warm. Absent: rash - Patient Status Disposition: Home, Self-Care Condition: Good - Discharge Instructions Instructions: Chest Pain (DC) Follow Up With: Alison Galdamez CNP [Primary Care Provider] - 07/29/17 9:00 am Additional Instructions: Follow up with cardiology as scheduled. Follow up with PCP within the next 5-7 days for a recheck. Take your medications as directed. New prescription at your pharmacy Return to ER as needed for any other problems or concerns, or if your symptoms return or worsen. Diet (low calorie, low fat, low sodium), exercise, take your medications, wear your bipap at night. Follow-up appointments: If there is not an appointment listed below, please call your physician and schedule a follow-up appointment. If you have congestive heart failure and your symptoms return, make an appointment with your physician. Medication List: Carry an up to date list of medications you are taking at all time. We have given you an updated medication list including any new medications that you have been prescribed. Please provide that list to your primary provider Symptoms: If your condition changes or you experience any of the following symptoms, notify your physician immediately: Unusual or worsening pain, fever, persistent nausea and vomiting, bleeding, increase in swelling (especially in your legs), sudden weight gain, extreme dizziness, chest pain, increased drainage or redness from a wound or incision. Go to the emergency department if you experience a problem with breathing. Weights: If you have a history of swelling or shortness of breath, weigh yourself daily and notify your physician if you have a weight gain of two or more pounds in one day or 5 or more pounds in a week. If you experience any of the warning signs for stroke: Sudden numbness or weakness of the face, arm or leg; especially on one side of the body, sudden confusion, trouble speaking or understanding, sudden trouble seeing in one or both eyes, sudden trouble walking, dizziness, loss of balance or coordination, sudden sever headache with no cause; Call 911 or go to the emergency room. Stroke is a medical emergency. Some risk factors for stroke: Age, cigarette smoking, diabetes, excessive alcohol consumption, family history , high blood pressure, overweight, physical inactivity, prior stroke, heart attack, diagnosis of carotid artery stenosis or other artery disease. If you smoke, STOP: Smoking or tobacco use significantly increases your risk of heart and lung disease. Your chance of disease greatly increases if you continue to smoke. For more information, call the [place] tobacco quit line for smoking cessation QUIT-NOW ( ) - Diet and Activity Activity: increase activity as tolerated Diet: diabetic diet, low fat, low cholesterol, low salt diet - VTE Documentation of Mechanical Device: Graduated compression elastic hosiery
[2017-07-23] MEDS ORDERED: Isosorbide MONOnitrate (24 HR) 30 MG TAB.ER.24H PO SCH (09:00)
== END 2017-07-22 16:20 | disposition home or self-care (01) ==
LOC: 3BNU 06:04 → EMEROO 06:04 → 3BNU 08:15
PROVIDERS: ADMIT Hospitalist; ATTEND Hospitalist